=== PATIENT | male | born 1965 | race Hispanic/Latino ===

== ENCOUNTER 2019-01-21 17:56 | Inpatient (IN) | payer BC ==
[~2019-01-21] VITALS: Ht 167.6 cm; Wt 143.8 kg
[2019-01-21] MEDS ORDERED: SODIUM CHLORIDE 0.9% 1000ML 1,000 ML IV STA (18:24)
[2019-01-21] MEDS ORDERED: METOPROLOL TARTRATE 50 MG TAB PO ONE (18:24)
[2019-01-21] MEDS ORDERED: SODIUM CHLORIDE 0.9% 1000ML 500 ML IV STA (18:24)
[2019-01-21] MEDS ORDERED: ASPIRIN 81 MG CHEW TAB PO ONE (18:24)
[2019-01-21] MEDS ORDERED: ENOXAPARIN SODIUM INJ 100 MG/ML SYR SC ONE (18:24)
[2019-01-21] MEDS ORDERED: ONDANSETRON HCL INJ 2MG/ML 2ML 2 MG/ML VIAL IV PRN (18:30)
[2019-01-21] MEDS ORDERED: DEXTROSE 50% SYRINGE 50 ML IV PRN (18:30)
[2019-01-21] MEDS ORDERED: MORPHINE SULFATE 2 MG/ML SYR 1ML IV PRN (18:30)
[2019-01-21] MEDS ORDERED: NITROGLYCERIN 0.4 MG SUBL SL PRN (18:30)
[2019-01-21 18:45] LABS: BASOPHILS # (AUTO) 0.1 (0.0-0.1); BASOPHILS % 0.9 % (0.0-1.0); EOSINOPHILS # (AUTO) 0.3 (0.0-0.4); EOSINOPHILS % 3.9 % (0.0-6.0); HEMATOCRIT 43.5 % (38.2-49.6); HEMOGLOBIN 14.7 g/dL (14.0-18.0); LYMPHOCYTES # (AUTO) 2.2 (1.0-3.2); LYMPHOCYTES % 25.8 % (18.0-39.1); MEAN CORPUSCULAR HEMOGLOBIN 28.6 pg (28-32); MEAN CORPUSCULAR HGB CONC 33.8 g/dL (31-35); MEAN CORPUSCULAR VOLUME 84.6 fL (81-99); MONOCYTES # (AUTO) 0.6 (0.2-0.8); MONOCYTES % 6.5 % (4.4-11.3); NEUTROPHILS # (AUTO) 5.4 (2.1-6.9); NEUTROPHILS % 62.7 % (38.7-80.0); PLATELET COUNT 302 x10e3/uL (140-360); RED BLOOD COUNT 5.14 x10e6/uL (4.3-5.7)
[2019-01-21 18:52] LABS: INR 0.83; PROTHROMBIN TIME 11.9 seconds (11.9-14.5)
[2019-01-21 18:53] LABS: PARTIAL THROMBOPLASTIN TIME 24.4 seconds (23.8-35.5)
[2019-01-21 19:01] LABS: ALANINE AMINOTRANSFERASE 19 IU/L (0-55); ALBUMIN 4.2 g/dL (3.5-5.0); ALBUMIN/GLOBULIN RATIO 1.3 (0.8-2.0); ALKALINE PHOSPHATASE 102 IU/L (40-150); ANION GAP 14.7 mmol/L (8-16); BLOOD UREA NITROGEN 14 mg/dL (7-26); BUN/CREATININE RATIO 18 (6-25); CARBON DIOXIDE 27 mmol/L (22-29); CHLORIDE 101 mmol/L (98-107); CREATINE KINASE 44 IU/L (30-200); CREATININE, SERUM 0.79 mg/dL (0.72-1.25); EST GLOMERULAR FILTRATION RATE > 60 ML/MIN (60-); GLUCOSE 174 mg/dL (74-118); LIPASE 16 U/L (8-78); MAGNESIUM 1.4 MG/DL (1.3-2.1); POTASSIUM 3.7 mmol/L (3.5-5.1); SODIUM 139 mmol/L (136-145)
[2019-01-21 19:16] LABS: BILIRUBIN,URINE NEGATIVE (NEGATIVE); CLARITY,URINE SL CLOUDY (CLEAR); COLOR,URINE YELLOW (YELLOW); KETONES,URINE NEGATIVE (NEGATIVE); LEUKOCYTE ESTERASE ,URINE NEGATIVE (NEGATIVE); NITRITE,URINE NEGATIVE (NEGATIVE); PROTEIN,URINE DIPSTICK TRACE (NEGATIVE); URINE UROBILINOGEN 0.2 mg/dL (0.2 - 1)
[2019-01-21 19:29] LABS: BACTERIA,URINE FEW /HPF; HYALINE CASTS 0-1 (0-1); MUCUS,URINE MODERATE (RARE)
--- OUTSIDE RECORDS SUMMARY | 2019-01-21 19:39 | XMS REPORT | Clinical Summary ---
Author Author [facility] Address Unknown Phone Unavailable Care Team Providers Care Crew Member Name Role Phone Serg Starr MD PCP Allergies No Known Allergies Medications End Date Status Medication Sig Dispensed Refills Start Date Active atorvastatin (LIPITOR) 40 0 MG tablet 7 Active glipiZIDE (GLUCOTROL) 10 0 MG tablet 6 Active lisinopril 0 (PRINIVIL,ZESTRIL) 5 mg 7 tablet Active metFORMIN (GLUCOPHAGE) 0 500 mg tablet 6 Active LYRICA 75 mg capsule 0 6 Active traMADol (ULTRAM) 50 mg 0 tablet 7 Active meloxicam (MOBIC) 15 mg TAKE ONE 30 tablet 0 tablet TABLET BY 7 MOUTH DAILY Active zolpidem (AMBIEN) 5 MG Take 5 mg by 0 tablet mouth nightly as needed for sleep. Active Problems No known active problems Social History Date Tobacco Use Types Packs/Day Years Used Current Every Day Smoker Smokeless Tobacco: Never Used Sex Assigned at Date Recorded Not on file Industry Job Start Date Occupation Not on file Not on file Not on file Travel End Travel History Travel Start No recent travel history available. Last Filed Vital Signs Not on file Plan of Treatment Health Maintenance Due Date Last Done Comments COLONOSCOPY SCREENING 09/11/2017 SHINGLES VACCINES (#1) 09/11/2017 INFLUENZA VACCINE 12/13/2018 Results Not on fileafter 01/20/2018 Insurance Type Payer Benefit Subscriber ID Effective Phone Address Plan / Dates Group PPO BCBS ANTHEM xxxxxxxxxxxxxx [id number] [employer] ([place]) [place] [address] Advance Directives For more information, please contact: [phone] Patient Paper Sorter Explanation Type Date Recorded Advance Directives, Living Will and Medical Power of Merchant Mariner
--- OUTSIDE RECORDS SUMMARY | 2019-01-21 19:39 | XMS REPORT | Summary of Care ---
Author Author [facility] [place] Organization [facility] [place] Address Unknown Phone Unavailable Encounter HQ Encntr_alias(FIN) [id number] Date(s): 06/20/16 - 06/20/16 [facility] [place] [address] [place] [phone] Discharge Disposition: Home or Self Care Attending Physician: Serg Starr MD Vital Signs No data available for this section Problem List No data available for this section Allergies, Adverse Reactions, Alerts No data available for this section Medications No data available for this section Results No data available for this section Immunizations No data available for this section Procedures No data available for this section Social History No data available for this section Assessment and Plan No data available for this section
--- OUTSIDE RECORDS SUMMARY | 2019-01-21 19:39 | XMS REPORT | Continuity of Care Document ---
Author Author [facility] Organization [facility] Address Unknown Phone Unavailable Care Team Providers Care Tissue Packer Name Role Phone [facility] Unavailable Unavailable Problems Problem Status Onset Date Classification Date Reported Comments Source I82.403 - ACUTE EMBOLISM AND THOMBOS UNS Active 06/20/2016 [facility] 719.4 - PAIN IN JOINT Active 06/13/2011 [facility] Medications No Data Provided for This Section Allergies, Adverse Reactions, Alerts No Known Medication Allergies Immunizations No Data Provided for This Section Results No Data Provided for This Section Pathology Reports No Data Provided for This Section Diagnostic Reports Report Value Date Source Ext Lower Venous Doppler Unilat US Exam: Right lower extremity Doppler venous ultrasound. Reason for Exam: DVT. Pain in right knee. Comparison Exam: None Discussion: Real-time grayscale, color Doppler imaging, and spectral waveform analysis was performed of the right lower extremity deep venous system. There are no filling defects or lack of compressibility seen within the deep venous system to suggest DVT. The waveforms are within normal limits and respond appropriately to augmentation. Impression: 1. Negative right lower extremity Doppler venous ultrasound for DVT. 06/20/2016 [facility] Consultation Notes No Data Provided for This Section Discharge Summaries No Data Provided for This Section History and Physicals No Data Provided for This Section Vital Signs No Data Provided for This Section Encounters Location Location Details Encounter Type Encounter Number Reason For Visit Attending Provider ADM Date DC Date Status Source OD [id number] 719.4 - PAIN IN JOINT NALLELY STARR 06/13/2011 Active [facility] [place] [id number] Nallely Starr 06/20/2016 06/21/2016 [facility] Procedures No Data Provided for This Section Assessment and Plan No Data Provided for This Section Plan of Care No Data Provided for This Section Social History Social History Date Source No data available for this section 06/21/2016 [facility] Family History No Data Provided for This Section Advance Directives No Data Provided for This Section Functional Status No Data Provided for This Section
[2019-01-21] MEDS: FAMOTIDINE 20 MG/2 ML VIAL IV ONE ×2 (19:50→22:00)
--- NOTE | 2019-01-21 20:11 | Diagnostic Imaging Report ---
EXAMINATION: CHEST SINGLE (PORTABLE) INDICATION: ^ERMD ORDER ^[id number] ^1832 ^Y COMPARISON: None FINDINGS: AP view TUBES and LINES: None. LUNGS: Lungs are well inflated. Reticular opacities in the left lower lobe. No pulmonary edema. PLEURA: No pleural effusion or pneumothorax. HEART AND MEDIASTINUM: The cardiomediastinal silhouette is unremarkable.. BONES AND SOFT TISSUES: No acute osseous lesion. Soft tissues are unremarkable. UPPER ABDOMEN: No free air under the diaphragm. IMPRESSION: Indeterminate reticular opacities in the left lower lobe may reflect atelectasis or atypical infection. Recommend follow-up chest radiograph in 4-6 weeks. Noted that the lower left-sided ribs cannot be well evaluated on this exam. If clinical suspicious for trauma, then consider left-sided rib series for further evaluation. Signed by: Dr. Alexandra Gilliam M.D. on 01/21/2019 8:08 PM
--- NOTE | 2019-01-21 21:51 | Diagnostic Imaging Report ---
EXAM: CT Chest WITH contrast, pulmonary embolism protocol INDICATION: Chest pain COMPARISON: None TECHNIQUE: Chest was scanned utilizing a multidetector helical scanner from the lung apex through the level of the adrenal glands without administration of IV contrast. Coronal and sagittal reformations were obtained. Routine protocol was performed. Pulmonary embolism protocol was utilized. IV CONTRAST: 100 mL of Isovue 370 COMPLICATIONS: None RADIATION DOSE: Total DLP: 614 mGy*cm Estimated effective dose: (DLP x 0.014 x size factor) mSv CTDIvol has been reviewed. It is below the limits set by the Radiation Protocol Committee (RPC). Dose modulation, iterative reconstruction, and/or weight based adjustment of the mA/kV was utilized to reduce the radiation dose to as low as reasonably achievable. FINDINGS: LINES/ TUBES: None. LUNGS AND AIRWAYS: A 5 mm nodule along the superior aspect of the left major fissure is likely a fissural lymph node. No filling defects identified in the pulmonary arteries. Airways are normal. PLEURA: The pleural spaces are clear. HEART AND MEDIASTINUM: The thyroid gland is normal. No mediastinal, hilar or axillary lymphadenopathy. The heart is mildly enlarged. There is no pericardial effusion. There are mild atherosclerotic calcifications in the aorta and coronary arteries. Mild circumferential thickening of the lower esophagus. The main pulmonary artery is mildly dilated up to 3.5 cm. The ascending thoracic aorta is 3.2 cm in diameter. UPPER ABDOMEN: Small gastric hiatal hernia. Gastric band in place. BONES: The visualized bony thorax is within normal limits. SOFT TISSUES: Unremarkable. IMPRESSION: 1. Findings of mild esophagitis. 2. Small gastric hiatal hernia. A gastric band appears appropriate in position. 3. Triple vessel coronary artery calcific atherosclerosis. 4. Mild cardiomegaly and mildly dilated main pulmonary artery can be seen in setting of pulmonary hypertension. Signed by: Alverto Ambrosio DO on 01/21/2019 9:47 PM
[2019-01-21] MEDS ORDERED: IOPAMIDOL 370 MG/ML 200 ML INFUS..BTL INJ ONE (22:19)
[2019-01-22] VITALS (9 sets, daily range): BP systolic 113–145; BP diastolic 60–90
[2019-01-22] MEDS ORDERED: SODIUM CHLORIDE 0.9% 1000ML 1,000 ML ONE (00:47)
[2019-01-22] MEDS: INSULIN REGULAR, HUMAN 100 UNIT/1 ML 3ML VIAL SQ SCH ×5 (00:56→21:53)
--- NOTE | 2019-01-22 01:29 | NUR ---
REPORT GIVEN TO ROLANDO ROCKWELL.
--- NOTE | 2019-01-22 01:30 | NUR ---
received report from Gino RN, pt AAOx3, no resp distress, no c/o pain/discomfort, call light in reach
[2019-01-22 02:43] LABS: CREATINE KINASE 35 IU/L (30-200)
[2019-01-22 05:54] LABS: BASOPHILS # (AUTO) 0.1 (0.0-0.1); BASOPHILS % 0.7 % (0.0-1.0); EOSINOPHILS # (AUTO) 0.4 (0.0-0.4); EOSINOPHILS % 5.9 % (0.0-6.0); HEMATOCRIT 39.3 % (38.2-49.6); HEMOGLOBIN 12.9 g/dL (14.0-18.0); LYMPHOCYTES # (AUTO) 2.4 (1.0-3.2); LYMPHOCYTES % 33.8 % (18.0-39.1); MEAN CORPUSCULAR HEMOGLOBIN 28.4 pg (28-32); MEAN CORPUSCULAR HGB CONC 32.8 g/dL (31-35); MEAN CORPUSCULAR VOLUME 86.4 fL (81-99); MONOCYTES # (AUTO) 0.5 (0.2-0.8); MONOCYTES % 7.3 % (4.4-11.3); NEUTROPHILS # (AUTO) 3.7 (2.1-6.9); NEUTROPHILS % 51.9 % (38.7-80.0); PLATELET COUNT 277 x10e3/uL (140-360); RED BLOOD COUNT 4.55 x10e6/uL (4.3-5.7); RED CELL DISTRIBUTION WIDTH 13.2 % (11.7-14.4)
[2019-01-22 06:33] LABS: ALANINE AMINOTRANSFERASE 17 IU/L (0-55); ALBUMIN 3.5 g/dL (3.5-5.0); ALBUMIN/GLOBULIN RATIO 1.2 (0.8-2.0); ALKALINE PHOSPHATASE 87 IU/L (40-150); ANION GAP 15.5 mmol/L (8-16); BLOOD UREA NITROGEN 16 mg/dL (7-26); BUN/CREATININE RATIO 20 (6-25); CALCIUM 9.2 mg/dL (8.4-10.2); CARBON DIOXIDE 24 mmol/L (22-29); CHLORIDE 103 mmol/L (98-107); CHOL/HDL RATIO 4.8 (3.9-4.7); CHOLESTEROL 182 MD/DL (0-199); CREATININE, SERUM 0.79 mg/dL (0.72-1.25); EST GLOMERULAR FILTRATION RATE > 60 ML/MIN (60-); GLUCOSE 197 mg/dL (74-118); HDL CHOLESTEROL 38 MG/DL (40-60); LDL CHOLESTEROL 66 MG/DL (60-130); MAGNESIUM 1.5 MG/DL (1.3-2.1); PHOSPHORUS 3.6 MG/DL (2.3-4.7); POTASSIUM 3.5 mmol/L (3.5-5.1); SODIUM 139 mmol/L (136-145); TRIGLYCERIDES 390 MG/DL (0-149)
[2019-01-22] MEDS: FAMOTIDINE 20 MG/2 ML VIAL IV SCH ×2 (09:42→21:00)
[2019-01-22] MEDS: ASPIRIN 81 MG ENTERIC COATED PO SCH (09:42)
[2019-01-22] MEDS: ENOXAPARIN SODIUM INJ 100 MG/ML SYR SC SCH ×2 (09:42→21:01)
[2019-01-22] MEDS: METOPROLOL TARTRATE 25 MG TAB PO SCH ×3 (09:42→21:01)
--- NOTE | 2019-01-22 09:43 | NUR ---
Dr. Dickinson verbally ordered not to give metoprolol due to stress test;
--- NOTE | 2019-01-22 10:06 | NUR ---
RECEIVED REPORT FROM ER NURSE. WAITING FOR PATIENT TO ARRIVE TO FLOOR.
--- NOTE | 2019-01-22 10:19 | NUR ---
RECEIVED PATIENT FROM ER. PATIENT A/O X3, EVEN RESPIRATIONS ON RA. BOWEL SOUNDS ACTIVE, SKIN INTACT, NO EDEMA. TELEMETRY #2 SR-90. LEFT AC [address]. PATIENT NPO FOR STRESS TEST TODAY. VITAL SIGNS STABLE. ORIENTED PATIENT TO ROOM. BED LOW, WHEELS LOCKED, SIDE RAILS X2. CALL LIGHT IN REACH WILL CONTINUE TO MONITOR PATIENT.
[2019-01-22 10:45] LABS: CREATINE KINASE 39 IU/L (30-200)
--- NOTE | 2019-01-22 12:15 | Consultation ---
DATE OF CONSULTATION: 01/22/2019 Cardiology Consultation REQUESTING PHYSICIAN: Hany Guerrier MD REASON FOR CONSULTATION: Chest pain. HISTORY OF PRESENT ILLNESS: This is a 53-year-old man with history of hypertension, hyperlipidemia, and diabetes mellitus, who presents with complaints of chest pain. The patient reports he developed sharp chest pain on Monday night while he was at rest. The pain was 5 to 6/10 in severity, lasting seconds at a time, there was no shortness of breath, nausea, diaphoresis, or radiation. He saw his primary care physician yesterday for medication refills and mentioned this episode of chest pain. He was therefore instructed to present to the ER for further evaluation. REVIEW OF SYSTEMS: Negative except as per HPI. PAST MEDICAL HISTORY: 1. Hypertension. 2. Hyperlipidemia. 3. Diabetes mellitus. 4. Morbid obesity. PAST SURGICAL HISTORY: 1. Hernia repair. 2. Lap band. ALLERGIES: PLEASE SEE EMR. MEDICATIONS: Please see medication list. SOCIAL HISTORY: He quit smoking six months ago. Previously smoked one pack a week for 10 years, prior alcohol use. No illicit drugs. FAMILY HISTORY: Denies history of heart disease. PHYSICAL EXAMINATION: VITAL SIGNS: Temperature 96.7 degrees, pulse 85, respiratory rate 20, blood pressure 134/80, oxygen saturation 98% on room air. GENERAL: Morbidly obese gentleman, awake and alert, in no acute distress. HEENT: Normocephalic, atraumatic. Pupils are equal. No scleral icterus. NECK: Supple. No thyromegaly or cervical lymphadenopathy. No carotid bruits. LUNGS: Clear to auscultation bilaterally. No wheezes or crackles. CARDIOVASCULAR: Normal rate, regular rhythm. No murmur. Normal S1, S2. ABDOMEN: Soft, nontender. EXTREMITIES: No edema. NEUROLOGIC: Nonfocal exam. LABORATORY DATA: WBC 7.12, hemoglobin 12.9, hematocrit 39.3, platelets 277. Sodium 139, potassium 3.5, chloride 103, CO2 of 24, BUN 16, and creatinine 0.79. Troponin less than 0.001. Cholesterol 182, LDL 66, HDL 38, triglycerides 390. IMAGING DATA: CT chest findings of mild esophagitis, small gastric hiatal hernia. Gastric band appears appropriate in position. Triple vessel coronary artery calcific atherosclerosis. Mild cardiomegaly and mildly dilated main pulmonary artery can be seen in setting of pulmonary hypertension. EKG; normal sinus rhythm, moderate voltage criteria for LVH, may be normal variant, possible anterior infarct, age undetermined. T-wave abnormality, consider inferior ischemia. IMPRESSION: 1. Chest pain. 2. Coronary artery disease, based on coronary artery calcification, noted on CT chest. 3. Hypertension. 4. Hyperlipidemia. 5. Diabetes mellitus. 6. Prior tobacco use. RECOMMENDATIONS: No evidence of myocardial infarction on serial cardiac biomarkers thus far. Given risk factors and coronary artery calcifications, nuclear stress test was indicated to evaluate for ischemia. Echocardiogram to evaluate LV systolic function. Monitor patient closely on telemetry. Continue home cardiac medications. Blood pressure is well controlled. Encouraged continued smoking cessation. Thank you for this consult. We will continue to follow. Verna Carter MD ABS/MODL /[id number]
--- NOTE | 2019-01-22 13:45 | NUR ---
Visit made by the Spiritual Care Department Pastoral Visitor, Oanh Nguyen. PV provided pastoral presence, prayer, hospitality, and supportive listening. Pastoral Visitor informed pt/family of the scope of [facility] and availability. FLOR STEVENSON Mine Safety Manager Spiritual Care Department O: [phone] Pager: [phone] ([phone] number calling from)
[2019-01-22] MEDS ORDERED: TOPIRAMATE25 MG PO (13:56)
[2019-01-22] MEDS ORDERED: CYCLOBENZAPRINE10 MG PO (13:56)
[2019-01-22] MEDS ORDERED: LYRICA75 MG PO (13:56)
[2019-01-22] MEDS ORDERED: ATORVASTATIN CA20 MG PO (13:56)
[2019-01-22] MEDS ORDERED: LEVOTHYROXINE88 MCG PO (13:56)
[2019-01-22] MEDS ORDERED: ZALEPLON5 MG PO (13:56)
[2019-01-22] MEDS ORDERED: LISINOPRIL2.5 MG PO (13:56)
[2019-01-22] MEDS ORDERED: GLIPIZIDE5 MG PO (13:56)
[2019-01-22] MEDS ORDERED: TRAMADOL HCL100 MG PO (13:56)
[2019-01-22] MEDS ORDERED: METFORMIN HCL500 MG PO (13:56)
[2019-01-22] MEDS: METFORMIN HCL 500 MG TAB PO SCH (16:07)
[2019-01-22] MEDS: PREGABALIN 75 MG CAP PO SCH (16:07)
[2019-01-22] MEDS: CYCLOBENZAPRINE HCL 10 MG TAB PO PRN ×2 (16:16→22:36)
[2019-01-22] MEDS ORDERED: DEXTROSE 50% SYRINGE 50 ML IV PRN (18:00)
[2019-01-22] MEDS: ATORVASTATIN 20 MG TAB PO SCH (21:00)
[2019-01-22] MEDS ORDERED: INSULIN REGULAR, HUMAN 100 UNIT/1 ML 3ML VIAL SQ SCH (21:00)
[2019-01-22] MEDS: ZALEPLON 5 MG PO SCH (21:03)
[2019-01-22] MEDS: [UNRECOGNIZED DRUG - OTHER] PO SCH (21:03)
[2019-01-23] VITALS (7 sets, daily range): BP systolic 107–149; BP diastolic 64–95
--- NOTE | 2019-01-23 02:22 | NUR ---
Received report from PM nurse. Patient resting quitly at this time.
--- NOTE | 2019-01-23 04:43 | NUR ---
Patient converted to A-Fib on tele. Rate 112 -150. Call Dr Beebe and left message to return call.
[2019-01-23] MEDS ORDERED: METOPROLOL TARTRATE INJ 1 MG/ML VIAL IV PRN (05:00)
[2019-01-23 05:12] LABS: BASOPHILS # (AUTO) 0.1 (0.0-0.1); BASOPHILS % 0.7 % (0.0-1.0); EOSINOPHILS # (AUTO) 0.5 (0.0-0.4); EOSINOPHILS % 6.1 % (0.0-6.0); HEMATOCRIT 41.5 % (38.2-49.6); HEMOGLOBIN 13.9 g/dL (14.0-18.0); LYMPHOCYTES # (AUTO) 2.8 (1.0-3.2); MEAN CORPUSCULAR HEMOGLOBIN 28.6 pg (28-32); MEAN CORPUSCULAR HGB CONC 33.5 g/dL (31-35); MEAN CORPUSCULAR VOLUME 85.4 fL (81-99); MONOCYTES # (AUTO) 0.7 (0.2-0.8); MONOCYTES % 7.6 % (4.4-11.3); NEUTROPHILS # (AUTO) 4.5 (2.1-6.9); NEUTROPHILS % 52.2 % (38.7-80.0); PLATELET COUNT 257 x10e3/uL (140-360); RED BLOOD COUNT 4.86 x10e6/uL (4.3-5.7); RED CELL DISTRIBUTION WIDTH 12.9 % (11.7-14.4)
[2019-01-23] MEDS: LEVOTHYROXINE SODIUM 88 MCG TAB PO SCH (05:31)
[2019-01-23 05:42] LABS: ANION GAP 13.9 mmol/L (8-16); BLOOD UREA NITROGEN 12 mg/dL (7-26); BUN/CREATININE RATIO 14 (6-25); CALCIUM 9.6 mg/dL (8.4-10.2); CARBON DIOXIDE 28 mmol/L (22-29); CHLORIDE 101 mmol/L (98-107); CREATININE, SERUM 0.85 mg/dL (0.72-1.25); EST GLOMERULAR FILTRATION RATE > 60 ML/MIN (60-); GLUCOSE 208 mg/dL (74-118); MAGNESIUM 1.5 MG/DL (1.3-2.1); PHOSPHORUS 3.1 MG/DL (2.3-4.7); POTASSIUM 3.9 mmol/L (3.5-5.1); SODIUM 139 mmol/L (136-145)
--- NOTE | 2019-01-23 05:45 | NUR ---
S/W Dr Gardner and received a order to give patient metroprolol for HR greater than 110. HR was 145 meds given. Patient set up for stress test and received 2.5mg of med. Called and left message with Dr Gardner. Waiting for return call.
--- NOTE | 2019-01-23 06:38 | NUR ---
Consent signed . Patient resting quitly at this time.
[2019-01-23] MEDS: INSULIN REGULAR, HUMAN 100 UNIT/1 ML 3ML VIAL SQ SCH ×4 (07:30→21:16)
[2019-01-23] MEDS: FAMOTIDINE 20 MG/2 ML VIAL IV SCH ×2 (08:30→21:17)
[2019-01-23] MEDS: LISINOPRIL 2.5 MG TAB PO SCH (08:30)
[2019-01-23] MEDS: METFORMIN HCL 500 MG TAB PO SCH ×2 (08:30→17:30)
[2019-01-23] MEDS: TOPIRAMATE 25 MG TAB PO SCH (08:30)
[2019-01-23] MEDS: TRAMADOL HCL 50 MG TAB PO SCH (08:30)
[2019-01-23] MEDS: ASPIRIN 81 MG ENTERIC COATED PO SCH (08:30)
[2019-01-23] MEDS: PREGABALIN 75 MG CAP PO SCH ×2 (08:30→17:30)
[2019-01-23] MEDS: GLIPIZIDE 5 MG TAB PO SCH (08:30)
[2019-01-23] MEDS: ENOXAPARIN SODIUM INJ 100 MG/ML SYR SC SCH ×2 (08:30→21:16)
[2019-01-23] MEDS: METOPROLOL TARTRATE 25 MG TAB PO SCH ×2 (08:35→21:17)
--- NOTE | 2019-01-23 08:40 | NUR ---
spoke with Dr Lopez and notified her the patient had been given metoprolol 2.5 mg IV around 0515 this morning for heart rate 150s. per MD if patient's heart rate is in the 120s to give another 5 mg of IV metoprolol IV now and confirm the patient has not had caffeine for the last 24 hours, and he will not be able to do the treadmill part of the stress test yet. per patient he has not had any caffeine for the last 24 hours.
--- NOTE | 2019-01-23 09:50 | NUR ---
patient leaving unit via wheelchair to nuclear medicine for stress test at this time. patient alert and oriented and in no distress. tele in place and IV in tact.
--- NOTE | 2019-01-23 10:49 | NUR ---
Patient back to unit via wheelchair. calm, alert and oriented. back in bed. call hunter within reach and bed in lowest, locked position.
[2019-01-23] MEDS ORDERED: ONDANSETRON HCL 4 MG ORAL DISINTEGRATING TAB PO PRN (12:15)
[2019-01-23] MEDS ORDERED: REGADENOSON 0.4 MG/5 ML SYR IV ONE (12:31)
--- NOTE | 2019-01-23 16:02 | Progress Note ---
DATE: 01/23/2019 Cardiology Progress Note SUBJECTIVE: The patient denies chest pain or shortness of breath. He went into atrial fibrillation with rapid ventricular response overnight. Seen for nuclear stress test today. OBJECTIVE: VITAL SIGNS: Temperature 97.6 degrees, pulse 93 respiratory rate 20, blood pressure 124/82, oxygen saturation 94% on room air. GENERAL: Obese gentleman, in no acute distress. Awake and alert. LUNGS: Clear to auscultation bilaterally. No wheezes or crackles. CARDIOVASCULAR: Irregularly irregular, tachycardic. No murmur. Normal S1, S2. ABDOMEN: Soft, nontender. EXTREMITIES: No edema. CARDIAC MEDICATIONS: Lexapro 5 mg p.o. daily, enoxaparin 100 mg subcu q.12 hours, aspirin 162 mg p.o. q.a.m., levothyroxine 88 mcg p.o. daily, atorvastatin 40 mg p.o. at bedtime, metoprolol tartrate 25 mg p.o. q.12 hours. LABORATORY DATA: WBC 8.55, hemoglobin 13.9, hematocrit 41.5, platelets 257. Sodium 139, potassium 3.9, chloride 101, CO2 of 28, BUN 12, creatinine 0.85. TELEMETRY: Atrial fibrillation, rapid ventricular response. IMPRESSION: 1. Chest pain. 2. Atrial fibrillation with rapid ventricular response. 3. Coronary artery disease based on coronary artery calcification noted on CT chest. 4. Hypertension. 5. Hyperlipidemia. 6. Diabetes mellitus. 7. Prior tobacco use. RECOMMENDATIONS: The patient ruled out for myocardial infarction with serial cardiac biomarkers. Nuclear stress test was performed to evaluate for ischemia. Further recommendations pending test results. Start metoprolol for rate control, titrate up as necessary. The patient's CHADS-VASc score is 3 for high blood pressure, diabetes, and coronary artery disease. We will discuss warfarin versus Eliquis for CVA prophylaxis. Monitor patient closely on telemetry while admitted. LDL is controlled. Continue current atorvastatin. Blood pressure is for the most part reasonable. Continue current cardiac medications otherwise. Thank you for this consult. We will continue to follow. Verna Carter MD ABS/MODL /[id number]
--- NOTE | 2019-01-23 16:20 | NUR ---
Spoke to Dr. Carter regarding stress test result. She states it's still pending, but pt's HR is not controlled. Pt not cleared for discharge until HR controlled. Spoke to SURESH Caballero and he agrees pt not ready for discharge. Gave inpatient order.
[2019-01-23] MEDS ORDERED: ACETAMINOPHEN 325 MG TAB PO PRN (17:30)
[2019-01-23] MEDS ORDERED: MAGNESIUM SULFATE IV ONE (18:00)
[2019-01-23] MEDS ORDERED: SODIUM CHLORIDE 0.9% IV ONE (18:00)
--- NOTE | 2019-01-23 19:22 | Myoview Stress Test ---
DATE OF STUDY: 01/21/2019 23:06:00 Stress Test - Treadmill ONLY PROCEDURE TITLE: Rest stress single isotope SPECT imaging with pharmacologic stress and gated SPECT imaging. INDICATION: Chest pain. PROCEDURE IN DETAIL: Pharmacologic stress testing was performed with regadenoson per protocol. The heart rate was 106 beats per minute at rest increased to 142 beats per minute during the regadenoson infusion. The resting blood pressure was 113/80 mmHg and decreased to 104/78 mmHg, which is a normal response. The resting electrocardiogram demonstrated atrial fibrillation with rapid ventricular response and nonspecific ST abnormalities. There were no ST-segment changes suggestive of myocardial ischemia. Myocardial perfusion imaging was performed at rest following injection of 11 mCi of tetrofosmin. At peak pharmacologic effect, the patient was injected with 32.2 mCi of tetrofosmin. Gated post-stress tomographic imaging was performed. FINDINGS: The overall quality of study is fair. Left ventricular cavity is noted to be normal size on the rest and stress studies. SPECT images demonstrate homogeneous tracer distribution throughout the myocardium. Gated SPECT imaging reveals normal myocardial thickening and wall motion. The left ventricular ejection fraction was greater than 50% by visual estimate. IMPRESSION: Myocardial perfusion imaging is normal. Overall left ventricular systolic function was normal without regional wall motion abnormalities. Verna Carter MD ABS/MODL /[id number]
[2019-01-23] MEDS ORDERED: ROPINIROLE HCL 0.25 MG TAB PO SCH (21:00)
[2019-01-23] MEDS ORDERED: MELATONIN 5 MG TABLET PO PRN (21:00)
[2019-01-23] MEDS: ZALEPLON 5 MG PO SCH (21:17)
[2019-01-23] MEDS: ATORVASTATIN 20 MG TAB PO SCH (21:17)
[2019-01-23] MEDS: [UNRECOGNIZED DRUG - OTHER] PO SCH (21:17)
[2019-01-24 00:37] VITALS: BP 127/79
[2019-01-24 04:25] VITALS: BP 124/77
[2019-01-24] MEDS: LEVOTHYROXINE SODIUM 88 MCG TAB PO SCH (05:03)
[2019-01-24 05:47] LABS: BASOPHILS # (AUTO) 0.1 (0.0-0.1); BASOPHILS % 0.6 % (0.0-1.0); EOSINOPHILS # (AUTO) 0.4 (0.0-0.4); EOSINOPHILS % 5.4 % (0.0-6.0); HEMATOCRIT 40.8 % (38.2-49.6); HEMOGLOBIN 13.7 g/dL (14.0-18.0); LYMPHOCYTES # (AUTO) 2.6 (1.0-3.2); LYMPHOCYTES % 32.7 % (18.0-39.1); MEAN CORPUSCULAR HEMOGLOBIN 28.5 pg (28-32); MEAN CORPUSCULAR HGB CONC 33.6 g/dL (31-35); MEAN CORPUSCULAR VOLUME 84.8 fL (81-99); MONOCYTES # (AUTO) 0.7 (0.2-0.8); MONOCYTES % 8.4 % (4.4-11.3); NEUTROPHILS # (AUTO) 4.1 (2.1-6.9); NEUTROPHILS % 52.6 % (38.7-80.0); PLATELET COUNT 253 x10e3/uL (140-360); RED BLOOD COUNT 4.81 x10e6/uL (4.3-5.7)
[2019-01-24 06:04] LABS: ANION GAP 13.4 mmol/L (8-16); BLOOD UREA NITROGEN 9 mg/dL (7-26); BUN/CREATININE RATIO 11 (6-25); CALCIUM 9.7 mg/dL (8.4-10.2); CARBON DIOXIDE 28 mmol/L (22-29); CHLORIDE 101 mmol/L (98-107); CREATININE, SERUM 0.83 mg/dL (0.72-1.25); EST GLOMERULAR FILTRATION RATE > 60 ML/MIN (60-); GLUCOSE 211 mg/dL (74-118); MAGNESIUM 1.5 MG/DL (1.3-2.1); POTASSIUM 4.4 mmol/L (3.5-5.1); SODIUM 138 mmol/L (136-145)
[2019-01-24 07:29] VITALS: BP 124/77
[2019-01-24] MEDS: INSULIN REGULAR, HUMAN 100 UNIT/1 ML 3ML VIAL SQ SCH (07:30)
[2019-01-24] MEDS ORDERED: METFORMIN HCL 500 MG TAB PO SCH (08:00)
[2019-01-24 08:22] VITALS: BP 145/90
[2019-01-24] MEDS: ASPIRIN 81 MG ENTERIC COATED PO SCH (08:38)
[2019-01-24] MEDS: FAMOTIDINE 20 MG/2 ML VIAL IV SCH (08:38)
[2019-01-24] MEDS: GLIPIZIDE 5 MG TAB PO SCH (08:38)
[2019-01-24] MEDS: METOPROLOL TARTRATE 25 MG TAB PO SCH (08:38)
[2019-01-24] MEDS: LISINOPRIL 2.5 MG TAB PO SCH (08:39)
[2019-01-24] MEDS: PREGABALIN 75 MG CAP PO SCH (08:39)
[2019-01-24] MEDS: TRAMADOL HCL 50 MG TAB PO SCH (08:40)
[2019-01-24] MEDS: TOPIRAMATE 25 MG TAB PO SCH (08:40)
[2019-01-24] MEDS: ENOXAPARIN SODIUM INJ 100 MG/ML SYR SC SCH (08:40)
[2019-01-24] MEDS ORDERED: ELIQUIS PO (09:56)
[2019-01-24] MEDS ORDERED: ATORVASTATIN CA20 MG PO (09:56)
[2019-01-24] MEDS ORDERED: LOPRESSOR25 MG PO (09:56)
--- NOTE | 2019-01-24 11:53 | NUR ---
reviewed dc instructions with pt, verbalized understanding
[2019-01-24 11:59] VITALS: BP 123/70
--- NOTE | 2019-01-24 12:27 | NUR ---
delivered [employer] discount card to patient and instructed him to call number to register. patient verbalized understanding.
[2019-01-24] MEDS ORDERED: FAMOTIDINE 20 MG TAB PO SCH (16:30)
--- NOTE | 2019-01-24 16:52 | Progress Note ---
DATE: 01/24/2019 Cardiology Progress Note SUBJECTIVE: The patient denies chest pain or shortness of breath. OBJECTIVE: VITAL SIGNS: Temperature 98.2 degrees, pulse 85, respiratory rate 19, blood pressure 145/90, and oxygen saturation 97%. GENERAL: Awake, alert, in no acute distress. LUNGS: Clear to auscultation bilaterally. No wheezes or crackles. CARDIOVASCULAR: Normal rate, regular rhythm. No murmur. Normal S1, S2. ABDOMEN: Soft, nontender. EXTREMITIES: No edema. CARDIAC MEDICATIONS: Enoxaparin 100 mg subcu q.12 hours, lisinopril 5 mg p.o. daily, metoprolol tartrate 25 mg p.o. q.12 hours, aspirin 162 mg p.o. daily, levothyroxine 88 mcg p.o. daily, atorvastatin 40 mg p.o. at bedtime. LABORATORY DATA: WBC 7.85, hemoglobin 13.7, hematocrit 40.8, platelets 253. Sodium 138, potassium 4.4, chloride 101, CO2 of 28, BUN 9, creatinine 0.83. TELEMETRY: Normal sinus rhythm. IMPRESSION: 1. Chest pain. 2. Paroxysmal atrial fibrillation, currently sinus rhythm. 3. Coronary artery disease based on coronary artery consultation noted on CT chest. 4. Hypertension. 5. Hyperlipidemia. 6. Diabetes mellitus. 7. Prior tobacco use. RECOMMENDATIONS: The patient ruled out for myocardial infarction with serial cardiac biomarkers. Nuclear stress test was without evidence of ischemia. The patient was noted to develop paroxysmal atrial fibrillation during admission. CHADS-VASc score is 3 due to his high blood pressure, diabetes, and coronary artery disease. Discussed anticoagulation with warfarin versus Eliquis for CVA prophylaxis. The patient elected to proceed with Eliquis. Continue metoprolol for rate control. Discussion regarding treatment of sleep apnea, weight loss, and blood pressure control for reduction of atrial fibrillation was performed. Continue atorvastatin. Continue current cardiac medications. Further titration of antihypertensive therapy as an outpatient. Please have the patient follow with us in the office in two weeks. Thank you for this consult. We will continue to follow. Verna Carter MD ABS/MODL /[id number]
[2019-01-24] MEDS ORDERED: ATORVASTATIN 40 MG TAB PO SCH (21:00)
--- NOTE | 2019-01-25 22:50 | Discharge Summary ---
ADMISSION DIAGNOSES: Sharp chest pain, hypertension, complicated by coronary artery disease, hyperlipidemia, hypertriglyceridemia, type 2 diabetes, hypokalemia, morbid obesity with a BMI of 51 and hypothyroidism. DISCHARGE DIAGNOSES: Sharp chest pain, hypertension, complicated by coronary artery disease, hyperlipidemia, hypertriglyceridemia, type 2 diabetes, hypokalemia, morbid obesity with a BMI of 51 and hypothyroidism, rule out myocardial infarction. HISTORY: Hypertension, type 2 diabetes, hyperlipidemia, hypothyroidism, morbid obesity, migraines. SURGICAL HISTORY: Left inguinal hernia repair, lap band. FAMILY HISTORY: The patient's mom and dad had diabetes and high blood pressure. SOCIAL HISTORY: The patient drinks alcohol occasionally and smokes one pack a week for 10 years. HOSPITAL COURSE: A 53-year-old male admitted with chest pain that began Monday described as 4/10 left-sided nonradiating, but on Monday, the pain was worse and more sharp. He did not take any medications, but continued his home medications. No contributing or alleviating factors. On admission, chest x-rayshowed indeterminate reticular opacities in the left lower lobe, may reflect atelectasis or atypical infection. CT of the chest showed mild esophagitis, small gastric hiatal hernia, mild cardiomegaly. Troponins were negative x3. The patient was taken to a stress test, which was negative and the EF was normal. Triglycerides were 390. The patient will discharge home on Eliquis 5 mg b.i.d., metoprolol 25 q.12 and Lipitor at bedtime as well as his home medicines. He will follow up with primary care in 1 to 2 weeks. The patient understands discharge instructions and agrees to plan. Dictated by Angela Raymond NP MD RUMA Godinez/KEITH /[id number]
== END 2019-01-24 12:36 | disposition home or self-care (01) | DRG 313 ==
LOC: EDBD 17:56 → ER 17:56 → ERHOLD 19:36 → IMCU 01-22 10:28 → OBSVTOIN 01-23 16:21
PROVIDERS: ADMIT Internal Medicine; ATTEND Internal Medicine
DX: R07.9 Chest pain, unspecified (principal); Z68.43 Body mass index [BMI] 50.0-59.9, adult; E03.9 Hypothyroidism, unspecified; Z98.84 Bariatric surgery status; Z83.3 Family history of diabetes mellitus; Z82.49 Family history of ischemic heart disease and other diseases of the circulatory system; I25.10 Atherosclerotic heart disease of native coronary artery without angina pectoris; Z87.891 Personal history of nicotine dependence; I11.9 Hypertensive heart disease without heart failure; E11.65 Type 2 diabetes mellitus with hyperglycemia; E87.6 Hypokalemia; E66.01 Morbid (severe) obesity due to excess calories; E78.1 Pure hyperglyceridemia; I48.0 Paroxysmal atrial fibrillation; G25.81 Restless legs syndrome; K20.9 Esophagitis, unspecified; K44.9 Diaphragmatic hernia without obstruction or gangrene; Z79.84 Long term (current) use of oral hypoglycemic drugs
CPT/HCPCS: 36415; 71045; 71260; 78452; 80048; 80053; 80061; 81001; 82550; 82553; 82948; 83036; 83690; 83735; 83880; 84100; 84443; 84484; 85025; 85610; 85730; 87086; 93005; 93017; 93306; 99284; A9502; G0378; J1650; J1817; J3475; J7030; Q9967